=== PATIENT | female | born 1950 | race Caucasian/White ===

== ENCOUNTER → 2017-04-18 | Outpatient (CLI) | payer BC, OTHER ==
[~2017-04-18] MED LIST: ALBU1AER9 INH; B-COTAB18 PO; BLAC1TAB PO; CALC-51 PO; CALC625T35 PO; CINN1CAP2 PO; COEN10CA5 PO; HYDR-4852 PO; LRS10 PO; MISCCAP8 PO; MONT1TAB3 PO; MULT-506 PO; NAPR500T3 PO; SERT25TA PO; SIMV10TA2 PO; SYMIN INH; TOPI50TA24 PO; TRIATAB3 PO; TURM1CAP2 PO; VITA100C2 PO; [UNRECOGNIZED DRUG - CODE] PO
--- NOTE | 2017-04-18 15:20 | MAMMOGRAPHY REPORT ---
BILATERAL DIGITAL SCREENING MAMMOGRAM WITH CAD: 04/18/2017 CLINICAL HISTORY: Routine screening. Patient has no complaints. TECHNIQUE: Bilateral CC and MLO views were obtained. Current study was also evaluated with a Compute r Aided Detection (CAD) system. COMPARISON: Comparison is made to exams dated: 04/14/2016 mammogram, 04/03/2015 mammogram, 01/31/2014 m ammogram, 01/11/2013 mammogram, 01/10/2012 mammogram, and 01/04/2011 mammogram - [facility] nter. BREAST COMPOSITION: The tissue of both breasts is almost entirely fatty. FINDINGS: There are a few scattered stable benign-appearing round and punctate microcalcifications. No suspicious mass, architectural distortion or cluster of suspicious microcalcifications is seen. IMPRESSION: ACR BI-RADS CATEGORY 1: NEGATIVE There is no mammographic evidence of malignancy. A 1 year screening mammogram is recommended. The pa tient will receive written notification of the results. Approximately 10% of breast cancers are not detected with mammography. A negative mammographic report should not delay biopsy if a clinically suggestive mass is present. Lupe Rico M.D. ay/:04/18/2017 12:41:14 Red Lead Burner: Krissy ERICKSON(R)(M), [facility] letter sent: Normal 1/2 BI-RADS Code: ACR BI-RADS Category 1: Negative
== END | disposition home or self-care (01) ==
LOC: C.MAMM 12:20
PROVIDERS: ATTEND Family Medicine
DX: Z12.31 Encounter for screening mammogram for malignant neoplasm of breast (principal)

== ENCOUNTER 2018-02-01 17:34 | Emergency (ER) | payer OTHER, BC ==
[~2018-02-01] VITALS: Ht 167.6 cm; Wt 82.0 kg
[~2018-02-01 17:34] MED LIST changes: +NAPR-1231 PO; -NAPR500T3 PO
[2018-02-01 17:40] VITALS: TEMP 37.4; Ht 167.6 cm; Wt 82.0 kg
[2018-02-01] MEDS ORDERED: SODIUM CHLORIDE 0.9% 1000ML 1,000 ML IV STA (17:50)
[2018-02-01] MEDS ORDERED: ONDANSETRON INJ 2 MG/ML 2 ML VIAL IV STA (17:50)
[2018-02-01] MEDS ORDERED: OPTIRAY 320 IV PRN (18:00)
--- NOTE | 2018-02-01 18:06 | EMERGENCY ROOM VISIT NOTE ---
History Report prepared by Harrison: Ana Colmenares Under the Supervision of: Dr. Raj Rowan D.O. First contact with patient: 17:44 Chief Complaint: FALL Stated Complaint: FALL, BACK PAIN, DIFFICULTY BREATHING History of Present Illness The patient is a 67 year old female who presents to the Emergency Room with complaints of severe, constant mid-back pain beginning 1 hour 20 minutes ago. She notes she fell and hurt the middle of her back. The patient reports her pain is worst in the middle of her back, slightly to the right. She denies trauma to the head, LOC, abdominal pain or leg pain. The patient denies blood thinner use. She notes she had a double fusion of her back, by Dr. Xiao in [place] in 2002. Source of History: patient Onset: 1 hour 20 minutes ago Position: back (middle) Symptom Intensity: severe Associated Symptoms: No abdominal pain Note: Denies: trauma to head, leg pain Review of Systems See HPI for pertinent positives & negatives. A total of 10 systems reviewed and were otherwise negative. Past Medical & Surgical Back pain Family History No pertinent family history stated Social History Smoking Status: Never Smoker Marital Status: Housing Status: lives with family Current/Historical Medications Scheduled Budesonide/Formoterol Fumarate (Symbicort 160/4.5 Inhaler ), 2 PUFFS INH BID Magnesium Oxide (Mag-Ox), 400 MG PO DAILY Montelukast Sod (Montelukast Sodium), 10 MG PO HS Multivitamin (Multivitamin), 1 TAB PO QAM Naproxen (Naproxen), 1 TAB PO BID Sertraline HCl (Sertraline HCl), 100 MG PO DAILY Simvastatin (Zocor), 10 MG PO HS Topiramate (Topamax), 50 MG PO QAM Topiramate (Topamax), 100 MG PO HS Triamterene/Hctz (Triamterene/Hctz 37.5-25MG), 1 TAB PO QAM [Menthol Pads], 1 PATCH TOP PRN UD Scheduled PRN Baclofen (Baclofen), 1 TAB PO TID PRN for Pain Hydrocodone/Acetaminophen 7.5MG/325MG ([place] 7.5MG/325MG), 1 TAB PO TID PRN for Pain [Proair 108], 2 PUFF INH QID PRN for SOB/Wheezing Allergies Coded Allergies: Etodolac (Verified Allergy, Severe, HIVES, 02/01/18) Physical Exam Vital Signs Date Time Temp Pulse Resp B/P (MAP) Pulse Ox O2 Delivery O2 Flow Rate FiO2 02/01/18 20:37 70 18 151/85 93 02/01/18 18:49 74 20 126/73 97 Room Air 02/01/18 17:40 37.4 78 24 126/83 99 Room Air Physical Exam GENERAL: Patient is awake, alert, walking but appears to be in significant pain. EYES: The conjunctivae are clear. The pupils are round and reactive. EARS, NOSE, MOUTH AND THROAT: The nose is without any evidence of any deformity. Mucous membranes are moist. Tongue is midline NECK: The neck is nontender and supple. RESPIRATORY: Splinting respirations noted, no rales, rhonchi, or wheezing appreciated. CARDIOVASCULAR: Regular rate and rhythm noted. There no murmurs rubs or gallops normal S1 normal S2 GASTROINTESTINAL: The abdomen is soft. Bowel sounds are present in all quadrants. Abdomen is nontender. BACK: an area of ecchymosis noted over R lower posterior ribcage, significant tenderness in lower thoracic and upper lumbar spine MUSCULOSKELETAL/EXTREMITIES: There is no evidence of gross deformity. Full range of motion is noted in the hips and shoulders. SKIN: There is no obvious evidence of any rash. There are no petechiae, pallor or cyanosis noted. NEUROLOGIC: Patient is awake alert and oriented x3. Medical Decision & Procedures ER Provider Diagnostic Interpretation: Radiology results as stated below per my review and radiologist interpretation: CT SCAN OF THE CHEST, ABDOMEN, AND PELVIS WITH IV CONTRAST CLINICAL HISTORY: Trauma. Fall. COMPARISON STUDY: Chest x-ray dated 10/20/2007. TECHNIQUE: Following the IV administration of 116 of Optiray 320, CT scan of the chest, abdomen, and pelvis was performed from the thoracic inlet to the proximal femora. Images are reviewed in the axial, sagittal, and coronal planes. IV contrast was administered without complication. A dose lowering technique was utilized adhering to the principles of ALARA. CT DOSE: 1676.43 mGy.cm FINDINGS: CHEST: Thyroid: Imaged portions of the thyroid gland are normal in size and attenuation. Thoracic aorta: The thoracic aorta is normal in caliber and demonstrates standard 3-vessel arch anatomy. No dissection is seen. Pulmonary vasculature: The pulmonary trunk is normal in caliber. There are no filling defects identified in the central pulmonary vessels to indicate pulmonary embolus. Note that this examination was not protocoled for evaluation of the pulmonary arteries. Heart: The heart is normal in size and configuration, and without pericardial effusion. Lungs and pleural spaces: There is trace right pleural effusion. No airspace consolidation or pneumothorax is seen. The trachea and central airways are clear. Mediastinum: There is no mediastinal hematoma or lymphadenopathy. Evelyn: Clear. Axillae: There is no axillary lymphadenopathy. Bony thorax: The skeletal structures are osteopenic. There is a nondistracted right transverse process fracture of T10. Additionally, there is a comminuted fracture of the right 11th rib near the costovertebral junction. The bony thorax is otherwise intact. There is mild thoracic levoscoliosis. No lytic or blastic lesions are identified. ABDOMEN AND PELVIS: Liver: The contrast-enhanced liver is top normal in size. The liver is normal in contour and attenuation. There is no intrahepatic or ductal dilatation. The hepatic veins and portal veins are patent. Gallbladder: Unremarkable. Spleen: Normal in size and attenuation. There is a 13 mm peripherally calcified splenic artery aneurysm. Pancreas: Unremarkable. Adrenal glands: Unremarkable. Kidneys: The contrast enhanced kidneys are normal in size and without hydronephrosis. The kidneys enhance symmetrically. A 14 mm cyst is noted in the right lower pole. Abdominal vasculature: The abdominal aorta is normal in course and caliber. Stomach and bowel: A tiny hiatal hernia is identified. The duodenum is normal in configuration. No bowel obstruction is seen. The appendix is well-visualized and normal. Peritoneum: There is no intraperitoneal free air or abdominal ascites. There is a small fat-containing umbilical hernia. Lymphadenopathy: None. Pelvic viscera: The bladder, uterus, and adnexa are normal as visualized. Skeletal structures: The skeletal structures are osteopenic. There is moderate lumbosacral spondylosis and scoliosis. Postlaminectomy change is seen at L5-S1. No lytic or blastic lesions are seen. IMPRESSION: 1. There is a nondistracted right transverse process fracture of T10. 2. There is a comminuted fracture of the right posterior 11th rib. 3. No additional fracture is seen. 4. There is trace pleural fluid at the right lung base. The lungs are otherwise clear and there is no pneumothorax. 5. There is no evidence of solid organ injury in the abdomen or pelvis. 6. There is a 13 mm peripherally calcified splenic artery aneurysm. 7. Additional findings as above. Electronically signed by: Armando Medellin M.D. 02/01/2018 6:51 PM Dictated Date/Time: 02/01/2018 6:39 PM Laboratory Results 02/01/18 16:07 Red Blood Count 4.41, Mean Corpuscular Volume 93.9, Mean Corpuscular Hemoglobin 32.4, Mean Corpuscular Hemoglobin Concent 34.5, Mean Platelet Volume 9.5, Neutrophils (%) (Auto) 56.3, Lymphocytes (%) (Auto) 36.0, Monocytes (%) (Auto) 7.5, Eosinophils (%) (Auto) 0.0, Basophils (%) (Auto) 0.0, Neutrophils # (Auto) 2.92, Lymphocytes # (Auto) 1.87, Monocytes # (Auto) 0.39, Eosinophils # (Auto) 0.00, Basophils # (Auto) 0.00 02/01/18 16:07 Test 02/01/18 16:07 02/01/18 18:13 02/01/18 19:52 White Blood Count 5.19 K/uL (4.8-10.8) Red Blood Count 4.41 M/uL (4.2-5.4) Hemoglobin 14.3 g/dL (12.0-16.0) Hematocrit 41.4 % (37-47) Mean Corpuscular Volume 93.9 fL (80-100) Mean Corpuscular Hemoglobin 32.4 pg (25-34) Mean Corpuscular Hemoglobin Concent 34.5 g/dl (32-36) Platelet Count 183 K/uL (130-400) Mean Platelet Volume 9.5 fL (7.4-10.4) Neutrophils (%) (Auto) 56.3 % Lymphocytes (%) (Auto) 36.0 % Monocytes (%) (Auto) 7.5 % Eosinophils (%) (Auto) 0.0 % Basophils (%) (Auto) 0.0 % Neutrophils # (Auto) 2.92 K/uL (1.4-6.5) Lymphocytes # (Auto) 1.87 K/uL (1.2-3.4) Monocytes # (Auto) 0.39 K/uL (0.11-0.59) Eosinophils # (Auto) 0.00 K/uL (0-0.5) Basophils # (Auto) 0.00 K/uL (0-0.2) RDW Standard Deviation 44.5 fL (36.4-46.3) RDW Coefficient of Variation 13.0 % (11.5-14.5) Immature Granulocyte % (Auto) 0.2 % Immature Granulocyte # (Auto) 0.01 K/uL (0.00-0.02) Est Creatinine Clear Calc Drug Dose 57.4 ml/min Estimated GFR () 64.8 Estimated GFR (Non- 55.9 BUN/Creatinine Ratio 25.2 (10-20) Calcium Level 9.3 mg/dl (8.5-10.1) Total Bilirubin 0.6 mg/dl (0.2-1) Direct Bilirubin 0.1 mg/dl (0-0.2) Aspartate Amino Transf (AST/SGOT) 21 U/L (15-37) Alanine Aminotransferase (ALT/SGPT) 37 U/L (12-78) Alkaline Phosphatase 48 U/L (45-117) Total Protein 7.9 gm/dl (6.4-8.2) Albumin 4.5 gm/dl (3.4-5.0) Bedside Hemoglobin 14.3 g/dl (12.0-16.0) Bedside Hematocrit 42 % (37-47) Bedside Sodium 141 mEq/L (135-144) Bedside Potassium 3.8 mEq/L (3.3-5.0) Bedside Chloride 102 mEq/L (101-112) Bedside Total CO2 23 mEq/l (24-31) Anion Gap 20.0 mmol/L (16-25) Bedside Blood Urea Nitrogen 24 mg/dl (7-18) Bedside Creatinine 0.9 mg/dl (0.6-1.3) Bedside Glucose (other) 113 mg/dl (70-99) Bedside Ionized Calcium ([place]) 1.18 mmol/l (1.12-1.32) Urine Color YELLOW Urine Appearance CLEAR (CLEAR) Urine pH 7.0 (4.5-7.5) Urine Specific [place] 1.031 (1.000-1.030) Urine Protein NEG (NEG) Urine Glucose (UA) NEG (NEG) Urine Ketones NEG (NEG) Urine Occult Blood NEG (NEG) Urine Nitrite NEG (NEG) Urine Bilirubin NEG (NEG) Urine Urobilinogen NEG (NEG) Urine Leukocyte Esterase TRACE (NEG) Urine WBC (Auto) 1-5 /hpf (0-5) Urine RBC (Auto) 0-4 /hpf (0-4) Urine Hyaline Casts (Auto) 0 /lpf (0-5) Urine Epithelial Cells (Auto) 0-5 /lpf (0-5) Urine Bacteria (Auto) NEG (NEG) Laboratory results per my review. Medications Administered Medications (Trade) Dose Ordered Sig/Lee Route Start Time Stop Time Status Last Admin Dose Admin Sodium Chloride 1,000 ml @ 250 mls/hr Q4H STAT IV 02/01/18 17:50 02/01/18 20:50 DC 02/01/18 18:21 250 MLS/HR Morphine Sulfate (MoRPHine SULFATE INJ) 4 mg Q15M PRN IV 02/01/18 18:00 02/01/18 20:50 DC 02/01/18 20:19 4 MG Ondansetron HCl (Zofran Inj) 4 mg NOW STAT IV 02/01/18 17:50 02/01/18 17:53 DC 02/01/18 18:21 4 MG ED Course 1747: The patient was evaluated in room A11A. A complete history and physical examination were performed. 1750: Ordered Zofran Inj 4 mg IV, NSS 1,000 ml @ 250 mls/hr IV 1800: Ordered Ioversol 111 ml IV, Morphine Sulfate 4 mg IV. 1934: Upon reevaluation, the patient is feeling better. I discussed the results and treatment plan with her. She verbalized agreement of the treatment plan. The patient was discharged home. Medical Decision Etiologies such as fracture, dislocation, intra-abdominal, pneumothorax, intrathoracic , intracranial, neurologic, as well as other traumatic pathologies were entertained. Nursing notes reviewed. Additional history is obtained from the patient's significant other. The patient is a 67-year-old female who suffered a significant fall onto her back. She had significant pain and ecchymosis over the right mid back and the right posterior rib cage. CAT scan did not reveal any internal injury however she was found to have a transverse process fracture and a posterior rib fracture. I discussed the patient's laboratory and radiographic studies with her. She was treated with IV pain medication in the emergency department. On subsequent reevaluation she was feeling much better. She was comfortable going home because she already has a prescription for pain medication. She was encouraged to continue all medications as prescribed and rest. She was also given an incentive spirometer. She was also encouraged to return to the emergency department immediately if symptoms change worsen or the need arises. Otherwise she was encouraged to follow-up with her primary care physician for further evaluation. Medication Reconcilliation Current Medication List: was personally reviewed by me Blood Pressure Screening Patient's blood pressure: Normal blood pressure Blood pressure disposition: Did not require urgent referral Impression Primary Impression: Fall Additional Impressions: Back contusion Right rib fracture Fracture of transverse process of thoracic vertebra Scribe Attestation The scribe's documentation has been prepared under my direction and personally reviewed by me in its entirety. I confirm that the note above accurately reflects all work, treatment, procedures, and medical decision making performed by me. Departure Information Dispostion Home / Self-Care Referrals Evelyn Romero D.O. (PCP) Forms HOME CARE DOCUMENTATION FORM, IMPORTANT VISIT INFORMATION Patient Instructions My [facility] Additional Instructions Rest and avoid any strenuous activity. Continue all medications as prescribed. Follow-up with your family doctor for recheck as well as a referral to a vascular surgeon regarding the calcified blood vessel by your spleen that was noted on CAT scan incidentally today. Return to the emergency department immediately if symptoms change worsen or the need arises. Continue using the incentive spirometer as illustrated 10-12 times a day. Problem Qualifiers Primary Impression: Fall Encounter type: initial encounter Qualified Codes: W19.XXXA - Unspecified fall, initial encounter Additional Impressions: Back contusion Encounter type: initial encounter Laterality: right Qualified Codes: S20.221A - Contusion of right back wall of thorax, initial encounter Right rib fracture Encounter type: initial encounter Rib fracture type: single rib Fracture type: closed Qualified Codes: S22.31XA - Fracture of one rib, right side, initial encounter for closed fracture Fracture of transverse process of thoracic vertebra Encounter type: initial encounter Fracture type: closed Qualified Codes: S22.009A - Unspecified fracture of unspecified thoracic vertebra, initial encounter for closed fracture
[2018-02-01] MEDS: MoRPHine SULFATE 4 MG/ML 1 ML CARP\\VIAL IV PRN ×2 (18:21→20:19)
[2018-02-01 18:29] LABS: ISTAT CREATININE 0.9 mg/dl (0.6-1.3); ISTAT IONIZED CALCIUM 1.18 mmol/l (1.12-1.32); ISTAT POTASSIUM 3.8 mEq/L (3.3-5.0)
[2018-02-01 18:32] LABS: HEMATOCRIT 41.4 % (37-47); HEMOGLOBIN 14.3 g/dL (12.0-16.0); IG# 0.01 K/uL (0.00-0.02); LYMPH ABS # 1.87 K/uL (1.2-3.4); MEAN CELL VOLUME 93.9 fL (80-100); MEAN CORPUSCULAR HEMOGLOBIN 32.4 pg (25-34); MEAN CORPUSCULAR HGB CONC 34.5 g/dl (32-36); MEAN PLATELET VOLUME 9.5 fL (7.4-10.4); MONO % 7.5 %; MONO ABS # 0.39 K/uL (0.11-0.59); NEUT % 56.3 %; NEUT ABS # 2.92 K/uL (1.4-6.5); PLATELET COUNT 183 K/uL (130-400); RED CELL DISTRIBUTION WIDTH SD 44.5 fL (36.4-46.3); WHITE BLOOD COUNT 5.19 K/uL (4.8-10.8)
[2018-02-01 18:53] LABS: ALBUMIN 4.5 gm/dl (3.4-5.0); CALCIUM 9.3 mg/dl (8.5-10.1); CREATININE 1.04 mg/dl (0.60-1.20); POTASSIUM 3.7 mmol/L (3.5-5.1); TOTAL PROTEIN 7.9 gm/dl (6.4-8.2)
--- NOTE | 2018-02-01 18:53 | DIAGNOSTIC IMAGING REPORT ---
CT SCAN OF THE CHEST, ABDOMEN, AND PELVIS WITH IV CONTRAST CLINICAL HISTORY: Trauma. Fall. COMPARISON STUDY: Chest x-ray dated 10/20/2007. TECHNIQUE: Following the IV administration of 116 of Optiray 320, CT scan of the chest, abdomen, and pelvis was performed from the thoracic inlet to the proximal femora. Images are reviewed in the axial, sagittal, and coronal planes. IV contrast was administered without complication. A dose lowering technique was utilized adhering to the principles of ALARA. CT DOSE: 1676.43 mGy.cm FINDINGS: CHEST: Thyroid: Imaged portions of the thyroid gland are normal in size and attenuation. Thoracic aorta: The thoracic aorta is normal in caliber and demonstrates standard 3-vessel arch anatomy. No dissection is seen. Pulmonary vasculature: The pulmonary trunk is normal in caliber. There are no filling defects identified in the central pulmonary vessels to indicate pulmonary embolus. Note that this examination was not protocoled for evaluation of the pulmonary arteries. Heart: The heart is normal in size and configuration, and without pericardial effusion. Lungs and pleural spaces: There is trace right pleural effusion. No airspace consolidation or pneumothorax is seen. The trachea and central airways are clear. Mediastinum: There is no mediastinal hematoma or lymphadenopathy. Evelyn: Clear. Axillae: There is no axillary lymphadenopathy. Bony thorax: The skeletal structures are osteopenic. There is a nondistracted right transverse process fracture of T10. Additionally, there is a comminuted fracture of the right 11th rib near the costovertebral junction. The bony thorax is otherwise intact. There is mild thoracic levoscoliosis. No lytic or blastic lesions are identified. ABDOMEN AND PELVIS: Liver: The contrast-enhanced liver is top normal in size. The liver is normal in contour and attenuation. There is no intrahepatic or ductal dilatation. The hepatic veins and portal veins are patent. Gallbladder: Unremarkable. Spleen: Normal in size and attenuation. There is a 13 mm peripherally calcified splenic artery aneurysm. Pancreas: Unremarkable. Adrenal glands: Unremarkable. Kidneys: The contrast enhanced kidneys are normal in size and without hydronephrosis. The kidneys enhance symmetrically. A 14 mm cyst is noted in the right lower pole. Abdominal vasculature: The abdominal aorta is normal in course and caliber. Stomach and bowel: A tiny hiatal hernia is identified. The duodenum is normal in configuration. No bowel obstruction is seen. The appendix is well-visualized and normal. Peritoneum: There is no intraperitoneal free air or abdominal ascites. There is a small fat-containing umbilical hernia. Lymphadenopathy: None. Pelvic viscera: The bladder, uterus, and adnexa are normal as visualized. Skeletal structures: The skeletal structures are osteopenic. There is moderate lumbosacral spondylosis and scoliosis. Postlaminectomy change is seen at L5-S1. No lytic or blastic lesions are seen. IMPRESSION: 1. There is a nondistracted right transverse process fracture of T10. 2. There is a comminuted fracture of the right posterior 11th rib. 3. No additional fracture is seen. 4. There is trace pleural fluid at the right lung base. The lungs are otherwise clear and there is no pneumothorax. 5. There is no evidence of solid organ injury in the abdomen or pelvis. 6. There is a 13 mm peripherally calcified splenic artery aneurysm. 7. Additional findings as above. Electronically signed by: Armando Medellin M.D. 02/01/2018 6:51 PM Dictated Date/Time: 02/01/2018 6:39 PM
[2018-02-01] MEDS ORDERED: PROAIR 108 INH (19:09)
[2018-02-01] MEDS ORDERED: ZLF/50 PO (19:09)
[2018-02-01] MEDS ORDERED: HYDR-3983 PO (19:09)
[2018-02-01] MEDS ORDERED: [UNRECOGNIZED DRUG - OTHER] TOP (19:09)
[2018-02-01] MEDS ORDERED: SYMIN160 INH (19:09)
[2018-02-01] MEDS ORDERED: TPM/50 PO (19:09)
[2018-02-01] MEDS ORDERED: SNG10 PO (19:09)
[2018-02-01] MEDS ORDERED: MAGN400T6 PO (19:09)
[2018-02-01 20:37] VITALS: BP 151/85; PULSE 70; O2SAT 93
== END 2018-02-01 20:37 | disposition home or self-care (01) ==
LOC: C.EDB 17:36 → C.EDA 20:37
DX: S30.0XXA Contusion of lower back and pelvis, initial encounter (principal); S22.31XA Fracture of one rib, right side, initial encounter for closed fracture; S22.009A Unspecified fracture of unspecified thoracic vertebra, initial encounter for closed fracture; W19.XXXA Unspecified fall, initial encounter; G89.29 Other chronic pain; Z88.6 Allergy status to analgesic agent; Z98.1 Arthrodesis status

== ENCOUNTER 2019-10-15 16:12 | Observation (INO) ==
[2019-10-15] MEDS ORDERED: SODIUM CHLORIDE 0.9% 1000ML 1,000 ML IV SCH (16:30)
--- NOTE | 2019-10-15 16:38 | Emergency Department Note ---
History of Present Illness General Chief complaint: Flank Pain Stated complaint: flank pain Time Seen by Provider: 10/15/19 16:16 History of Present Illness Maximum Pain Intensity: 4 The patient is a 68-year-old female who presented to the emergency department for an evaluation of right-sided flank pain. The patient has been experiencing right-sided abdominal pain and right flank pain over the last 3 to 4 days. She states the pain is moderate and worsened with any movement. She also notices localization in the right lower quadrant specifically with bending over. She is noticed no nausea or vomiting. She notices no fevers. She has not noticed any dysuria or frequency. She denies having any hematuria. She was seen by her primary care physician and sent for laboratory and radiographic studies. She was found to have signs of appendicitis on CT the abdomen and pelvis. For this reason she was sent to the emergency department for surgical evaluation. The patient states that she has had not had anything by mouth over the last few hours. She went home to pack a bag and then came here after she was called by her primary care physician. Home Medications Home Medications Medication Instructions Recorded Confirmed Type albuterol sulfate [ProAir HFA] 2 puff INHALATION QID PRN 11/08/18 10/15/19 His tory baclofen 10 mg PO TID PRN 11/08/18 10/15/19 History budesonide-formoterol [Symbicort] 2 puff INHALATION BID 11/08/18 10/15/19 History duloxetine 30 mg PO DAILY 11/08/18 10/15/19 History hydrocodone-acetaminophen [[place]] 1 tab PO TID PRN 11/08/18 10/15/19 History magnesium oxide 400 mg PO DAILY 11/08/18 10/15/19 History montelukast [Singulair] 10 mg PO PM 11/08/18 10/15/19 History multivitamin 1 tab PO QAM 11/08/18 10/15/19 History naproxen 500 mg PO BID PRN 11/08/18 10/15/19 History potassium chloride 10 meq PO DAILY 11/08/18 10/15/19 History simvastatin [Zocor] 10 mg PO HS 11/08/18 10/15/19 History topiramate [Topamax] 100 mg PO HS 11/08/18 10/15/19 History lisinopril 10 mg PO DAILY 10/15/19 10/15/19 History Allergies Allergy/AdvReac Type Severity Reaction Status Date / Time etodolac Allergy Intermediate HIVES Verified 10/15/19 18:35 Past Med/Surg History Medical History Anxiety Asthma USES PRN INH 1 X MO NEEDED Chiari malformation Chronic back pain Degenerative disc disease History of ectopic Hyperlipidemia Hypertension Migraine Osteoarthritis Scoliosis Surgical History History of carpal tunnel release of both wrists History of cataract surgery History of colonoscopy History of fusion of lumbar spine History of laparoscopy History of sinus surgery Family History Sister Family history of diabetes mellitus Social History Preferred Language: Belarusian Communication Ability: Effective Engraver Automatic Required: No Beliefs That Will Affect Care: None Current Living Situation: Spouse and Family Other Information That Helps Us Care for You: No Feels Safe at Home: Yes Safety Concerns: Feels Safe At This Time Smoking Status: Never smoker Do You Dip or Chew Tobacco: No ; Second Hand Exposure: No ; Tobacco Cessation Education Requested by Patient: No Hx Alcohol Use: No Hx Substance Use: No Review of Systems See HPI for pertinent positives & negatives. and A total of 10 systems reviewed and were otherwise negative Physical Exam Vital Signs Vital Signs - 24 hr 10/15/19 16:14 10/15/19 16:26 10/15/19 16:44 Temperature 36.9 C Temperature Source Oral Pulse Rate 73 75 Pulse Rate from SpO2 Sensor 75 Pulse Rhythm Regular Pulse Strength Normal Respiratory Rate 18 22 Respiratory Effort / Characteristics Non-Labored Respiratory Depth Normal Respiratory Pattern Regular Blood Pressure 162/84 H 159/95 H Blood Pressure Mean 110 120 Blood Pressure Position Sitting Pulse Oximetry 97 97 98 Oxygen Delivery Method Room Air Room Air Sepsis Recent Fever Within 48 Hours No Sepsis Action Taken by Nursing No Action Required 10/15/19 16:50 10/15/19 17:00 10/15/19 17:10 Temperature Temperature Source Pulse Rate 74 67 67 Pulse Rate from SpO2 Sensor 74 67 67 Pulse Rhythm Pulse Strength Respiratory Rate 14 13 14 Respiratory Effort / Characteristics Respiratory Depth Respiratory Pattern Blood Pressure Blood Pressure Mean Blood Pressure Position Pulse Oximetry 98 99 99 Oxygen Delivery Method Sepsis Recent Fever Within 48 Hours Sepsis Action Taken by Nursing 10/15/19 17:20 10/15/19 17:30 10/15/19 17:40 Temperature Temperature Source Pulse Rate 70 66 70 Pulse Rate from SpO2 Sensor 74 67 65 Pulse Rhythm Pulse Strength Respiratory Rate 15 15 17 Respiratory Effort / Characteristics Respiratory Depth Respiratory Pattern Blood Pressure Blood Pressure Mean Blood Pressure Position Pulse Oximetry 98 98 Oxygen Delivery Method Sepsis Recent Fever Within 48 Hours Sepsis Action Taken by Nursing 10/15/19 17:50 10/15/19 18:00 10/15/19 18:10 Temperature Temperature Source Pulse Rate 67 75 86 Pulse Rate from SpO2 Sensor 67 Pulse Rhythm Pulse Strength Respiratory Rate 16 15 18 Respiratory Effort / Characteristics Respiratory Depth Respiratory Pattern Blood Pressure Blood Pressure Mean Blood Pressure Position Pulse Oximetry 100 Oxygen Delivery Method Sepsis Recent Fever Within 48 Hours Sepsis Action Taken by Nursing GENERAL: Patient is awake alert in no acute distress patient is resting comfor tably and showing no signs of anxiety EYES: The conjunctivae are clear. The pupils are round and reactive. EARS, NOSE, MOUTH AND THROAT: The nose is without any evidence of any deformity. Mucous membranes are moist. Tongue is midline. NECK: The neck is nontender and supple. RESPIRATORY: Normal respiratory effort is noted there is no evidence of wheezing rhonchi or rales CARDIOVASCULAR: Regular rate and rhythm noted there no murmurs rubs or gallops normal S1 normal S2. GASTROINTESTINAL: The abdomen is mildly distended. There is significant tenderness in the right lower quadrant. There is guarding in both lower quadrants. BACK: Low right CVA tenderness was noted to percussion. There is no midline tenderness. MUSCULOSKELETAL/EXTREMITIES: There is no evidence of gross deformity full range of motion is noted in the hips and shoulders. SKIN: There is no obvious evidence of any rash. There are no petechiae, pallor or cyanosis noted. NEUROLOGIC: Patient is awake alert and oriented x3. Course Course 1635: I discussed this case with Nyasia Wellington. She will inform the on-call surgeon about the patient's condition and location. Administered Medications Lactated Ringer's (Lr) 1,000 mls @ 80 mls/hr IV .[id number] ERIC Stop: 11/14/19 21:25 Last Admin: 10/15/19 21:37 Dose: 80 mls/hr Documented by: [id number] Montelukast Sodium (Singulair) 10 mg PO PM [facility] Stop: 11/14/19 21:59 Last Admin: 10/15/19 21:52 Dose: 10 mg Documented by: [id number] Simvastatin (Zocor) 10 mg PO HS [facility] Stop: 11/14/19 21:59 Last Admin: 10/15/19 21:52 Dose: 10 mg Documented by: [id number] Topiramate (Topamax) 100 mg PO HS [facility] Stop: 11/14/19 21:59 Last Admin: 10/15/19 21:52 Dose: 100 mg Documented by: [id number] Discontinued Medications Bacitracin (Bacitracin) Confirm Administered Dose 45 appln .ROUTE .STK-MED ONE Stop: 10/15/19 18:07 Last Admin: 10/15/19 20:22 Dose: 45 appln Documented by: [id number] Bupivacaine HCl (Marcaine 0.5% Mpf) Confirm Administered Dose 30 ml .ROUTE .STK- MED ONE Stop: 10/15/19 18:07 Last Admin: 10/15/19 20:21 Dose: 11 ml Documented by: [id number] Sodium Chloride (Nss 1000ml) 1,000 mls @ 999 mls/hr IV .[id number] [facility] Stop: 10/15/19 17:30 Last Infusion: 10/15/19 18:03 Dose: 0 mls/hr Documented by: [id number] Admin: 10/15/19 16:42 Dose: 999 mls/hr Documented by: [id number] Cefoxitin Sodium (Mefoxin) 2,000 mg in 60 mls @ 100 mls/hr IV 1845 [facility] Stop: 10/16/19 18:44 Last Infusion: 10/15/19 21:38 Dose: 0 mls/hr Documented by: [id number] Admin: 10/15/19 19:28 Dose: 100 mls/hr Documented by: [id number] Lidocaine HCl (Xylocaine 1% (Local)) Confirm Administered Dose 20 ml .ROUTE .STK-MED ONE Stop: 10/15/19 18:07 Last Admin: 10/15/19 20:21 Dose: 11 ml Documented by: [id number] Medical Decision Making Differential Diagnosis Etiologies such as appendicitis, diverticulitis, obstruction, inflammatory bowel disease, renal colic, PUD, biliary pathology, pancreatitis, mesenteric ischemia, aortic pathology, infections, genitourinary, UTI, perforated viscus, a s well as others were entertained. Medical Records Attestation: I reviewed the patient's medical records. Home Medications Current Medication List: was personally reviewed by me Laboratory Data Attestation: I reviewed the patient's lab results. Result diagrams: 10/15/19 16:30 10/15/19 16:30 Lab Results 10/15/19 10/15/19 10/15/19 Range/Units 16:30 16:30 16:30 WBC 5.37 (4.8-10.8) K/uL RBC 4.01 L (4.2-5.4) M/uL Hgb 13.5 (12.0-16.0) g/dL Hct 39.6 (37-47) % MCV 98.8 (80-100) fL MCH 33.7 (25-34) pg MCHC 34.1 (32-36) g/dL RDW Std Deviation 44.4 (36.4-46.3) fL RDW Coeff of Rose 12.4 (11.5-14.5) % Plt Count 186 (130-400) K/uL MPV 9.2 (7.4-10.4) fL Immature Gran % (Auto) 0.0 % Neut % (Auto) 56.4 % Lymph % (Auto) 37.1 % [place] % (Auto) 6.5 % Eos % (Auto) 0.0 % Baso % (Auto) 0.0 % Immature Gran # (Auto) 0.00 (0.00-0.02) K/uL Neut # (Auto) 3.03 (1.4-6.5) K/uL Lymph # (Auto) 1.99 (1.2-3.4) K/uL [place] # (Auto) 0.35 (0.11-0.59) K/uL Eos # (Auto) 0.00 (0-0.5) K/uL Baso # (Auto) 0.00 (0-0.2) K/uL ESR 27 H (0-21) mm/hr Sodium 136 (136-145) mmol/L Potassium 3.4 L (3.5-5.1) mmol/L Chloride 110 H (98-107) mmol/L Carbon Dioxide 25 (21-32) mmol/L Anion Gap 1.0 L (3-11) BUN 19 H (7-18) mg/dl Creatinine 0.94 (0.6-1.2) mg/dl Est Cr Clr Drug Dosing 61.6 ml/min Est GFR ( Amer) 72.8 Est GFR (Non-Af Amer) 62.8 BUN/Creatinine Ratio 20.3 H (10-20) Glucose 90 (70-99) mg/dl Calcium 9.3 (8.5-10.1) mg/dl Total Bilirubin 0.3 (0.2-1) mg/dl AST 14 L (15-37) U/L ALT 30 (12-78) U/L Alkaline Phosphatase 49 (45-117) U/L C-Reactive Protein 1.54 H (0-0.29) mg/dl Total Protein 7.8 (6.4-8.2) gm/dl Albumin 3.9 (3.4-5.0) gm/dl Globulin 3.9 (2.5-4.0) gm/dl Albumin/Globulin Ratio 1.0 (0.9-2) Lipase 234 (73-393) U/L Urine Color Urine Appearance (Clear) Urine pH (4.5-7.5) Ur Specific [place] (1.000-1.030) Urine Protein (Negative) Urine Glucose (UA) (Negative) Urine Ketones (Negative) Urine Blood (Negative) Urine Nitrite (Negative) Urine Bilirubin (Negative) Urine Urobilinogen (Negative) Ur Leukocyte Esterase (Negative) 10/15/19 Range/Units 16:38 WBC (4.8-10.8) K/uL RBC (4.2-5.4) M/uL Hgb (12.0-16.0) g/dL Hct (37-47) % MCV (80-100) fL MCH (25-34) pg MCHC (32-36) g/dL RDW Std Deviation (36.4-46.3) fL RDW Coeff of Rose (11.5-14.5) % Plt Count (130-400) K/uL MPV (7.4-10.4) fL Immature Gran % (Auto) % Neut % (Auto) % Lymph % (Auto) % [place] % (Auto) % Eos % (Auto) % Baso % (Auto) % Immature Gran # (Auto) (0.00-0.02) K/uL Neut # (Auto) (1.4-6.5) K/uL Lymph # (Auto) (1.2-3.4) K/uL [place] # (Auto) (0.11-0.59) K/uL Eos # (Auto) (0-0.5) K/uL Baso # (Auto) (0-0.2) K/uL ESR (0-21) mm/hr Sodium (136-145) mmol/L Potassium (3.5-5.1) mmol/L Chloride (98-107) mmol/L Carbon Dioxide (21-32) mmol/L Anion Gap (3-11) BUN (7-18) mg/dl Creatinine (0.6-1.2) mg/dl Est Cr Clr Drug Dosing ml/min Est GFR ( Amer) Est GFR (Non-Af Amer) BUN/Creatinine Ratio (10-20) Glucose (70-99) mg/dl Calcium (8.5-10.1) mg/dl Total Bilirubin (0.2-1) mg/dl AST (15-37) U/L ALT (12-78) U/L Alkaline Phosphatase (45-117) U/L C-Reactive Protein (0-0.29) mg/dl Total Protein (6.4-8.2) gm/dl Albumin (3.4-5.0) gm/dl Globulin (2.5-4.0) gm/dl Albumin/Globulin Ratio (0.9-2) Lipase (73-393) U/L Urine Color Yellow Urine Appearance Clear (Clear) Urine pH 5.0 (4.5-7.5) Ur Specific [place] > 1.045 H (1.000-1.030) Urine Protein Negative (Negative) Urine Glucose (UA) Negative (Negative) Urine Ketones Negative (Negative) Urine Blood Negative (Negative) Urine Nitrite Negative (Negative) Urine Bilirubin Negative (Negative) Urine Urobilinogen Negative (Negative) Ur Leukocyte Esterase Negative (Negative) Blood Pressure Blood Pressure Findings: Elevated blood pressure Blood Pressure Disposition: elevated BP felt to be situational Additional Comments: Blood pressure management referred to surgical team. MDM Narrative The patient is a 68-year-old female who presented to the emergency department for right-sided abdominal pain. The patient started having right-sided abdominal pain and flank pain over the last few days. She was seen by her primary care physician and sent to the emergency department for further evaluation after a CAT scan revealed signs of appendicitis. I reviewed the patient's laboratory and radiographic studies with her. She was treated with IV fluids in the emergency department. I discussed her case with the on-call surgical group. They have agreed to evaluate the patient in the emergency department for further management and disposition. Patient was agreeable to surgical evaluation. She did not wish to have any pain medication at this time. Impression & Plan Acute appendicitis, Abdominal pain Discharge Plan Visit Data *Final* Discharge Date/Time: 10/15/19 18:40 Chief Complaint: Flank Pain Stated Complaint: flank pain ED Provider: Raj Rowan Discharge Problem: Acute appendicitis, Abdominal pain Patient Disposition: Admitted As Inpatient Condition: Good Discharge Instructions Interventions: ED Discharge Assessment Last Done: 10/15/19 18:40 Discharge Problem: Acute appendicitis Qualifiers: Acute appendicitis type: with localized peritonitis Appendicitis gangrene presence: without gangrene Appendicitis perforation presence: without perforation Appendicitis abscess presence: without abscess Qualified Code(s): K35.30 - Acute appendicitis with localized peritonitis, without perforation or gangrene Abdominal pain Qualifiers: Abdominal location: right lower quadrant Qualified Code(s): R10.31 - Right lower quadrant pain
[2019-10-15 16:49] LABS: Hematocrit (blood only) 39.6 % (37-47); Hemoglobin 13.5 g/dL (12.0-16.0); Lymphocytes # (auto) 1.99 K/uL (1.2-3.4); Lymphocytes % (auto) 37.1 %; Mean Corpuscular Hemoglobin 33.7 pg (25-34); Mean Corpuscular Hgb Conc 34.1 g/dL (32-36); Mean Corpuscular Volume 98.8 fL (80-100); Mean Platelet Volume 9.2 fL (7.4-10.4); Monocytes # (auto) 0.35 K/uL (0.11-0.59); Monocytes % (auto) 6.5 %; Neutrophils # (auto) 3.03 K/uL (1.4-6.5); Neutrophils % (auto) 56.4 %; Platelet Count 186 K/uL (130-400); RDW Coefficient of Variation 12.4 % (11.5-14.5); RDW Standard Deviation 44.4 fL (36.4-46.3); Red Blood Count 4.01 M/uL (4.2-5.4); White Blood Count 5.37 K/uL (4.8-10.8)
[2019-10-15 16:52] LABS: Appearance Urine Clear (Clear); Bilirubin Urine Negative (Negative); Blood Urine Negative (Negative); Color Urine Yellow; Glucose Urine UA Negative (Negative); Ketones Urine Negative (Negative); Leukocyte Esterase Urine Negative (Negative); Nitrite Urine Negative (Negative); Protein Urine Negative (Negative); Specific Gravity Urine > 1.045 (1.000-1.030); Urobilinogen Urine Negative (Negative)
[2019-10-15 17:07] LABS: Albumin Level 3.9 gm/dl (3.4-5.0); BUN Creatinine Ratio 20.3 (10-20); Calcium 9.3 mg/dl (8.5-10.1); Creatinine Clr Calc Pharmacy 61.6 ml/min; Est GFR (African American) 72.8; Est GFR (Non-African American) 62.8; Potassium 3.4 mmol/L (3.5-5.1)
[2019-10-15 17:10] LABS: Bilirubin,Total 0.3 mg/dl (0.2-1); C Reactive Protein 1.54 mg/dl (0-0.29); Globulin 3.9 gm/dl (2.5-4.0); Total Protein 7.8 gm/dl (6.4-8.2)
[2019-10-15] MEDS ORDERED: fentaNYL citrate 100 MCG/2 ML VIAL ONE (18:01)
[2019-10-15] MEDS ORDERED: BUPIVACAINE 0.5 % 5 MG/1 ML MPF 30ML VIAL ONE (18:06)
[2019-10-15] MEDS ORDERED: BACITRACIN OINT 15 GM TUBE ONE (18:06)
[2019-10-15] MEDS ORDERED: LIDOCAINE HCL 1% 20 ML VIAL ONE (18:06)
--- NOTE | 2019-10-15 18:10 | Anesthesiology Consultation ---
Date of Service October 15, 2019 Assessment & Plan (1) Encounter for pre-operative examination: Chart Review Chart Review: Acceptable Risk for Surgery and Patient NOT seen in Pre Admission Testing Consults Requested none ASA [id number] Proposed Anesthesia Anesthesia Type: General Risk / Benefits Reviewed With: PT / POA / Parent / Guardian, Accepts Plan and Informed Consent Obtained History Surgery Operation Date: 10/15/19 17:55 Proposed Procedures p Laparoscopic Appendectomy - Juancarlos Teran MD Height/Weight Height: 5 ft 3 in Weight: 89.4 kg Allergies Allergy/AdvReac Type Severity Reaction Status Date / Time etodolac Allergy Intermediate HIVES Verified 10/15/19 18:35 Medications Home Medications Medication Instructions Recorded Confirmed Last Taken albuterol sulfate [ProAir HFA] 2 puff INHALATION QID PRN 11/08/18 10/15/19 Unknown baclofen 10 mg PO TID PRN 11/08/18 10/15/19 11/21/18 budesonide-formoterol [Symbicort] 2 puff INHALATION BID 11/08/18 10/15/19 10/15/19 08:00 duloxetine 30 mg PO DAILY 11/08/18 10/15/19 10/15/19 hydrocodone-acetaminophen [[place]] 1 tab PO TID PRN 11/08/18 10/15/19 11/21/18 magnesium oxide 400 mg PO DAILY 11/08/18 10/15/19 10/15/19 montelukast [Singulair] 10 mg PO PM 11/08/18 10/15/19 10/14/19 multivitamin 1 tab PO QAM 11/08/18 10/15/19 10/15/19 naproxen 500 mg PO BID PRN 11/08/18 10/15/19 11/15/18 potassium chloride 10 meq PO DAILY 11/08/18 10/15/19 10/15/19 simvastatin [Zocor] 10 mg PO HS 11/08/18 10/15/19 10/14/19 topiramate [Topamax] 100 mg PO HS 11/08/18 10/15/19 10/14/19 lisinopril 10 mg PO DAILY 10/15/19 10/15/19 10/15/19 NPO Date Last Intake of Fluids: 10/15/19 Time Last Intake of Fluids: 14:00 Last Intake of Fluids Comment: CT Contrast Date Last Intake of Solids: 10/15/19 Time Last Intake of Solids: 14:00 Past Medical History Medical History Anxiety Asthma USES PRN INH 1 X MO NEEDED Chiari malformation Chronic back pain Degenerative disc disease History of ectopic Hyperlipidemia Hypertension Migraine Osteoarthritis Scoliosis Exercise / Class Metabolic Activity II 4-5 Yardwork/Stairs/Walk up hill Past Family History Family History Sister Family history of diabetes mellitus Past Surgical History Surgical History History of carpal tunnel release of both wrists History of cataract surgery History of colonoscopy History of fusion of lumbar spine History of laparoscopy History of sinus surgery Past Anesthesia History No Hx of Anesthesia Complications and No Family Hx of Anesthesia Complications History of PONV No Hx of PONV and No Hx of Motion Sickness Social History Smoking Status: Never smoker Hx Alcohol Use: No Alcohol type: wine alcohol intake frequency: holidays/special occasions only Hx Substance Use: No substance use type: does not use Physical Exam Vital Signs Last Vital Signs Temp 36.9 C 10/15/19 16:14 Pulse 86 10/15/19 18:10 Resp 18 10/15/19 18:10 BP 159/95 H 10/15/19 16:44 Pulse Ox 100 10/15/19 17:50 ENMT Mouth: no dentition abnormality Thyromental Distance: > or= 3.5 Finger Breadths Mallampati Class: II Neck normal visual inspection Respiratory normal respiratory effort Auscultation: lungs clear to auscultation bilaterally Cardiovascular Rate/Rhythm: regular rate and regular rhythm Psychiatric Orientation: alert Testing Laboratory Results 10/15/19 16:30 10/15/19 16:30 Urine Color Yellow 10/15/19 16:38 Urine Appearance Clear (Clear) 10/15/19 16:38 Urine pH 5.0 (4.5-7.5) 10/15/19 16:38 Ur Specific [place] > 1.045 (1.000-1.030) H 10/15/19 16:38 Urine Protein Negative (Negative) 10/15/19 16:38 Urine Glucose (UA) Negative (Negative) 10/15/19 16:38 Urine Ketones Negative (Negative) 10/15/19 16:38 Urine Nitrite Negative (Negative) 10/15/19 16:38 Ur Leukocyte Esterase Negative (Negative) 10/15/19 16:38
--- NOTE | 2019-10-15 18:27 | Surgery Consultation ---
Date of Consultation October 15, 2019 Assessment & Plan (1) Acute appendicitis: pt is a 68 year - old female who presents to ER with 3-4 days history RLQ pain, CT scan at [facility]- diagnosis- acute appendicitis, Plan, I recommend to do laparoscopic appendectomy, possible open , D/W benefits, risks and alternatives of the surgery, the risks - infection, bleeding, injury bowel, [place], pt understood, she agrees with the surgery, I answered all questions, History of Present Illness History of Present Illness History of Present Illness General Chief complaint: Flank Pain Stated complaint: flank pain Time Seen by Provider: 10/15/19 16:16 History of Present Illness Maximum Pain Intensity: 4 The patient is a 68-year-old female who presented to the emergency department for an evaluation of right-sided flank pain. The patient has been experiencing right-sided abdominal pain and right flank pain over the last 3 to 4 days. She states the pain is moderate and worsened with any movement. She also notices localization in the right lower quadrant specifically with bending over. She is noticed no nausea or vomiting. She notices no fevers. She has not noticed any dysuria or frequency. She denies having any hematuria. She was seen by her primary care physician and sent for laboratory and radiographic studies. She was found to have signs of appendicitis on CT the abdomen and pelvis. For this reason she was sent to the emergency department for surgical evaluation. The patient states that she has had not had anything by mouth over the last few hours. She went home to pack a bag and then came here after she was called by her primary care physician. I ( Juancarlos Teran MD ) got a call for consult acute appendicitis, I reviewed pt's H/P , labs, CT result, with pt, pt is still have RLQ pain, Home Medications Home Medications Medication Instructions Recorded Confirmed Type Symbicort 2 puff INHALATION BID 11/08/18 09/04/19 History albuterol sulfate [ProAir HFA] 2 puff INHALATION QID PRN 11/08/18 09/04/19 History baclofen 10 mg PO TID PRN 11/08/18 09/04/19 History duloxetine 30 mg PO DAILY 11/08/18 09/04/19 History hydrocodone-acetaminophen [[place]] 1 tab PO TID PRN 11/08/18 09/04/19 History magnesium oxide 400 mg PO DAILY 11/08/18 09/04/19 History montelukast [Singulair] 10 mg PO PM 11/08/18 09/04/19 History multivitamin 1 tab PO QAM 11/08/18 09/04/19 History naproxen 500 mg PO BID PRN 11/08/18 09/04/19 History potassium chloride 10 meq PO DAILY 11/08/18 09/04/19 History simvastatin [Zocor] 10 mg PO HS 11/08/18 09/04/19 History simvastatin [Zocor] 10 mg PO PM 11/08/18 09/04/19 History topiramate [Topamax] 100 mg PO HS 11/08/18 09/04/19 History triamterene-hydrochlorothiazid 1 tab PO DAILY 11/08/18 09/04/19 History Allergies Allergy/AdvReac Type Severity Reaction Status Date / Time etodolac Allergy Severe HIVES Verified 11/22/18 07:36 Past Med/Surg History Medical History Anxiety Asthma USES PRN INH 1 X MO NEEDED Chiari malformation Chronic back pain Degenerative disc disease History of ectopic Hyperlipidemia Hypertension Migraine Osteoarthritis Scoliosis Surgical History History of carpal tunnel release of both wrists History of cataract surgery History of colonoscopy History of fusion of lumbar spine History of laparoscopy History of sinus surgery Family History Sister Family history of diabetes mellitus Social History Preferred Language: Irish Communication Ability: Effective 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 and A total of 10 systems reviewed and were otherwise negative Allergies Allergy/AdvReac Type Severity Reaction Status Date / Time etodolac Allergy Severe HIVES Verified 10/15/19 16:54 Home Medications Home Medications Medication Instructions Recorded Confirmed Type albuterol sulfate [ProAir HFA] 2 puff INHALATION QID PRN 05/09/19 04/14/20 History baclofen 10 mg PO TID PRN 11/08/18 10/15/19 History budesonide-formoterol [Symbicort] 2 puff INHALATION BID 11/08/18 10/15/19 History duloxetine 30 mg PO DAILY 11/08/18 10/15/19 History hydrocodone-acetaminophen [[place]] 1 tab PO TID PRN 11/08/18 10/15/19 History magnesium oxide 400 mg PO DAILY 11/08/18 10/15/19 History montelukast [Singulair] 10 mg PO PM 11/08/18 10/15/19 History multivitamin 1 tab PO QAM 11/08/18 10/15/19 History naproxen 500 mg PO BID PRN 11/08/18 10/15/19 History potassium chloride 10 meq PO DAILY 11/08/18 10/15/19 History simvastatin [Zocor] 10 mg PO HS 11/08/18 10/15/19 History topiramate [Topamax] 100 mg PO HS 11/08/18 10/15/19 History lisinopril 10 mg PO DAILY 10/15/19 10/15/19 History Patient History Medical History Anxiety Asthma USES PRN INH 1 X MO NEEDED Chiari malformation Chronic back pain Degenerative disc disease History of ectopic Hyperlipidemia Hypertension Migraine Osteoarthritis Scoliosis Surgical History History of carpal tunnel release of both wrists History of cataract surgery History of colonoscopy History of fusion of lumbar spine History of laparoscopy History of sinus surgery Family History Sister Family history of diabetes mellitus Social History Preferred Language: Irish Communication Ability: Effective Branch Billing Payroll Clerk Required: No Beliefs That Will Affect Care: None Current Living Situation: Spouse and Family Other Information That Helps Us Care for You: No Feels Safe at Home: Yes Safety Concerns: Feels Safe At This Time Smoking Status: Never smoker Do You Dip or Chew Tobacco: No ; Second Hand Exposure: No ; Tobacco Cessation Education Requested by Patient: No Hx Alcohol Use: No Hx Substance Use: No Review of Systems Review of Systems: All systems reviewed & are unremarkable except as noted in HPI & below Constitutional: as per Subjective / HPI Eyes: as per Subjective / HPI Ear, Nose, Mouth, Throat: as per Subjective / HPI Respiratory: as per Subjective / HPI asthma Cardiovascular: as per Subjective / HPI Additional Comments: hyperlipemia Gastrointestinal: as per Subjective / HPI Genitourinary: as per Subjective / HPI Musculoskeletal: as per Subjective / HPI back pain, fall, fracture of transverse process of thoracic vertebra Integumentary: as per Subjective / HPI Neurologic: as per Subjective / HPI Psychiatric: as per Subjective / HPI Endocrine: as per Subjective / HPI Hematologic / Lymphatic: as per Subjective / HPI Allergy / Immunological: as per Subjective / HPI Physical Exam Constitutional: WD/WN, vitals as above well developed and well nourished Eyes: PERRL, conjunctivae normal, anicteric sclerae ENMT: external ear and nose normal, oropharynx normal Neck: trachea midline, no thyromegaly Respiratory: normal respiratory effort, lungs clear to auscultation normal respiratory effort Cardiovascular: RRR, no murmur, no edema Rate/Rhythm: regular rate and regular rhythm Heart Sounds: normal S1 and normal S2 Gastrointestinal (Abdomen): normal bowel sounds, soft, nontender, no hepatosplenomegaly Percussion/Palpation: + abdomen tender and abdomen soft tenderness at RLQ, no rebound pain, no distend Musculoskeletal: no cyanosis or clubbing, extremities motor strength 5/5 Skin: no rashes, warm and dry Neurologic: patellar DTR's 2+ bilat, sensation intact Psychiatric: Orientation: alert and oriented x 3 Results & Data Vital Signs (Past 12 Hours) Vital Signs Temp Pulse Resp BP Pulse Ox 10/15/19 16:26 97 10/15/19 16:14 36.9 C 73 18 162/84 H 97 Laboratory Results Abnormal lab results 10/15/19 10/15/19 10/15/19 Range/Units 16:30 16:30 16:30 RBC 4.01 L (4.2-5.4) M/uL ESR 27 H (0-21) mm/hr Potassium 3.4 L (3.5-5.1) mmol/L Chloride 110 H (98-107) mmol/L Anion Gap 1.0 L (3-11) BUN 19 H (7-18) mg/dl BUN/Creatinine Ratio 20.3 H (10-20) AST 14 L (15-37) U/L C-Reactive Protein 1.54 H (0-0.29) mg/dl Ur Specific [place] (1.000-1.030) 10/15/19 Range/Units 16:38 RBC (4.2-5.4) M/uL ESR (0-21) mm/hr Potassium (3.5-5.1) mmol/L Chloride (98-107) mmol/L Anion Gap (3-11) BUN (7-18) mg/dl BUN/Creatinine Ratio (10-20) AST (15-37) U/L C-Reactive Protein (0-0.29) mg/dl Ur Specific [place] > 1.045 H (1.000-1.030)
--- NOTE | 2019-10-15 18:28 | History & Physical Bridge Note ---
Date of Service October 15, 2019 History & Physical Bridge Note I have examined the patient, reviewed the History & Physical and in the interval since the performance of the History & Physical I have noted the following changes of clinical significance: no changes noted
[2019-10-15] MEDS ORDERED: cefOXitin 2,000 MG/60 ML BAG IV SCH (18:45)
[2019-10-15] MEDS ORDERED: ATROPINE SULFATE 0.1 MG/ML 10ML SYR IV PRN (18:52)
[2019-10-15] MEDS ORDERED: ONDANSETRON INJ 2 MG/ML 2 ML VIAL IV PRN ×2 (18:52→20:27)
[2019-10-15] MEDS ORDERED: fentaNYL citrate 100 MCG/2 ML VIAL IV PRN (18:52)
[2019-10-15] MEDS ORDERED: ePHEDrine sulfate 50 MG/ML AMP IV PRN (18:52)
[2019-10-15] MEDS ORDERED: MoRPHine SULFATE PF 1 MG/ML 10 ML AMP/VIAL ONE (19:25)
--- NOTE | 2019-10-15 20:24 | Post Operative Brief Note ---
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
[2019-10-15] MEDS ORDERED: PROPOFOL IV EMULSION 10 MG/ML 20 ML VIAL IV ONE (20:41)
[2019-10-15] MEDS ORDERED: DEXAMETHASONE SOD INJ 4 MG/ML VIAL ONE (20:41)
[2019-10-15] MEDS ORDERED: LIDOCAINE HCL 2% 2 ML VIAL/AMP(20MG/ML) INFIL ONE (20:41)
[2019-10-15] MEDS ORDERED: ONDANSETRON INJ 2 MG/ML 2 ML VIAL ONE (20:41)
[2019-10-15] MEDS ORDERED: SUCCINYLCHOLINE CHLORIDE 20 MG/ML 10 ML VIAL ONE (20:41)
--- NOTE | 2019-10-15 21:08 | Anesthesiology Progress Note ---
Date of Service October 15, 2019 Anesthesia Post Procedure Vital Signs Vital Signs: Temp Pulse Pulse Resp BP BP Pulse Ox 10/15/19 21:00 78 18 146/87 H 100 10/15/19 20:50 36.0 C L 76 16 162/95 H 94 10/15/19 18:10 86 18 10/15/19 18:00 75 15 10/15/19 17:50 67 16 100 10/15/19 17:40 70 17 10/15/19 17:30 66 15 98 10/15/19 17:20 70 15 98 10/15/19 17:10 67 14 99 10/15/19 17:00 67 13 99 10/15/19 16:50 74 14 98 10/15/19 16:44 75 22 159/95 H 98 10/15/19 16:26 97 10/15/19 16:14 36.9 C 73 18 162/84 H 97 Pain Intensity Abdomen: Pain Intensity: 0 Transfer of Care Handoff Completed per policy Notes Mental Status: alert / awake / arousable Patient Amnestic to Procedure: Yes Nausea / Vomiting: adequately controlled Pain: adequately controlled Airway Patency, RR, SpO2: stable & adequate BP & HR: stable & adequate Hydration State: stable & adequate Anesthetic Complications: no major complications apparent
[2019-10-15] MEDS ORDERED: BACLOFEN 10 MG TAB PO PRN (21:26)
[2019-10-15] MEDS ORDERED: NAPROXEN 250 MG TAB PO PRN (21:26)
[2019-10-15] MEDS ORDERED: OXYCODONE/ACETAMINOPHEN 5mg/325mg TAB PO PRN (21:26)
[2019-10-15] MEDS ORDERED: HYDROmorphone INJ 0.5 MG/0.5 ML SYR IV PRN (21:26)
[2019-10-15] MEDS ORDERED: ALBUTEROL HFA 8 GM INHALER INH PRN (21:28)
[2019-10-15] MEDS: LACTATED RINGER'S 1,000 ML IV SCH (21:37)
[2019-10-15] MEDS ORDERED: MONTELUKAST SODIUM 10 MG TABLET PO SCH (22:00)
[2019-10-15] MEDS ORDERED: TOPIRAMATE 100 MG TAB PO SCH (22:00)
[2019-10-15] MEDS ORDERED: SIMVASTATIN 10 MG TAB PO SCH (22:00)
--- NOTE | 2019-10-16 | Operative Report (OR) ---
DATE OF OPERATION: 10/15/2019 PREOPERATIVE DIAGNOSIS: Acute appendicitis. POSTOPERATIVE DIAGNOSIS: Acute appendicitis. OPERATION: Laparoscopic appendectomy. SURGEON: Juancarlos Teran MD. ANESTHESIA: General. ESTIMATED BLOOD LOSS: About 10 mL. FINDINGS: Acute appendicitis. COMPLICATIONS: None. INDICATIONS FOR THE PROCEDURE: This is a 68-year-old female who presented to ED with 4 days history of right lower quadrant pain. The patient had a CT scan diagnosis of acute appendicitis and I recommended to do laparoscopic appendectomy, possible open. I did talk to the patient about the benefits, risks, alternate procedures. I indicated the risks may include but not limited such as bleeding, infection, injury to the bowel, abscess. The patient understands. She signed informed consent and I answered all questions. DETAILS OF PROCEDURE: We brought in the patient to the OR, put the patient in the supine position. The patient received SCD on bilateral legs to prevent DVT. Also patient received 2 g cefoxitin IV for prophylactic antibiotic. The patient received general anesthesia without difficulty. The abdomen was prepped and draped in routine sterile fashion. After time-out, I injected local anesthesia by using 1% lidocaine mixed with 0.5% Marcaine just above the umbilicus. Then I made a small incision just above umbilicus, opened fascia and opened peritoneum under direct vision, put a Lizet trocar in, connected to CO2 to create pneumoperitoneum. Flow rate is 6 liter per minute. Pressure not more than 14 mmHg. Once we got a nice pneumoperitoneum, we put the camera in, looked around the abdomen, it showed normal finding on the small bowel and large bowel. However, the appendix showed it is enlarged, confirmed diagnosis of acute appendicitis with some inflammation on the appendix. Then we put another two 5 mm trocar on the right lower quadrant area. Then we used the grasper to hold the appendix and used the harmonic to take down appendiceal; rechecked, no active bleeding. Then I used a 45 mm Endo-GIOVANY staple for transection on the base of the appendix, rechecked the staple, line, intact, no active bleeding, no leak. Then we removed the appendix through the catch bag. Then we reinserted Lizet trocar in, connected to CO2 to create pneumoperitoneum. Again looked around the abdomen, no active bleeding, no leak from staple line. Then we removed all trocar under direct vision. No active bleeding from the trocar site. Pneumoperitoneum was released. Then I used #1 Vicryl [id number] and closed the umbilical incision, fascial layer, closed subcutaneous layer by using 2-0 Vicryl interruptedly, closed skin by using 4-0 Vicryl continuous running, closed another two 5 mm trocar site skin only by using 4-0 Vicryl. Then we put the dressing on. The patient tolerated the procedure well. All instrument, needle and sponge counts were correct x2 at the end of the case. The patient transferred to recovery room in stable condition. The specimen sent to pathology. After procedure, I did call the patient's about the OR finding and procedure we did and he understands. I attest to the content of the Intraoperative Record and any orders documented therein. Any exception s are noted below.
[2019-10-16] MEDS: HYDROCODONE/ACETAMINOPHEN 7.5/325MG TAB PO PRN ×3 (01:14→17:23)
[2019-10-16 07:18] LABS: Hematocrit (blood only) 35.5 % (37-47); Hemoglobin 12.2 g/dL (12.0-16.0); Immature Granulocytes # (auto) 0.01 K/uL (0.00-0.02); Immature Granulocytes % (auto) 0.2 %; Lymphocytes # (auto) 1.39 K/uL (1.2-3.4); Lymphocytes % (auto) 21.4 %; Mean Corpuscular Hemoglobin 33.8 pg (25-34); Mean Corpuscular Volume 98.3 fL (80-100); Mean Platelet Volume 9.4 fL (7.4-10.4); Monocytes # (auto) 0.43 K/uL (0.11-0.59); Monocytes % (auto) 6.6 %; Neutrophils # (auto) 4.67 K/uL (1.4-6.5); Neutrophils % (auto) 71.8 %; Platelet Count 168 K/uL (130-400); RDW Coefficient of Variation 12.3 % (11.5-14.5); RDW Standard Deviation 44.2 fL (36.4-46.3); Red Blood Count 3.61 M/uL (4.2-5.4)
[2019-10-16 07:20] LABS: Mean Corpuscular Hgb Conc 34.4 g/dL (32-36)
[2019-10-16 07:23] LABS: Albumin Globulin Ratio 0.9 (0.9-2); BUN Creatinine Ratio 15.1 (10-20); Bilirubin,Total 0.4 mg/dl (0.2-1); Creatinine Clr Calc Pharmacy 62.9 ml/min; Est GFR (African American) 74.7; Est GFR (Non-African American) 64.4; Globulin 3.5 gm/dl (2.5-4.0); Total Protein 6.5 gm/dl (6.4-8.2)
--- NOTE | 2019-10-16 07:49 | Anesthesiology Progress Note ---
Date of Service October 16, 2019 Anesthesia Post Procedure Vital Signs Vital Signs: Temp Pulse Pulse Pulse Resp BP BP 10/16/19 07:41 36.4 C L 69 18 137/78 10/16/19 03:48 36.5 C 79 16 121/75 10/16/19 00:25 36.6 C 72 16 133/76 10/15/19 23:26 36.3 C L 80 16 113/75 10/15/19 22:27 36.4 C L 69 18 161/90 H 10/15/19 22:01 76 18 145/81 H 10/15/19 21:25 36.3 C L 77 18 166/93 H 10/15/19 21:15 75 14 142/84 H 10/15/19 21:10 37.0 C 75 16 146/98 H 10/15/19 21:00 78 18 146/87 H 10/15/19 20:50 36.0 C L 76 16 162/95 H 10/15/19 18:10 86 18 10/15/19 18:00 75 15 10/15/19 17:50 67 16 10/15/19 17:40 70 17 10/15/19 17:30 66 15 10/15/19 17:20 70 15 10/15/19 17:10 67 14 10/15/19 17:00 67 13 10/15/19 16:50 74 14 10/15/19 16:44 75 22 159/95 H 10/15/19 16:26 10/15/19 16:14 36.9 C 73 18 162/84 H Pulse Ox 10/16/19 07:41 97 10/16/19 03:48 93 10/16/19 00:25 92 10/15/19 23:26 94 10/15/19 22:27 92 10/15/19 22:01 95 10/15/19 21:25 94 10/15/19 21:15 100 10/15/19 21:10 100 10/15/19 21:00 100 10/15/19 20:50 94 10/15/19 18:10 10/15/19 18:00 10/15/19 17:50 100 10/15/19 17:40 10/15/19 17:30 98 10/15/19 17:20 98 10/15/19 17:10 99 10/15/19 17:00 99 10/15/19 16:50 98 10/15/19 16:44 98 10/15/19 16:26 97 10/15/19 16:14 97 Pain Intensity Abdomen: Pain Intensity: 0 Notes Mental Status: alert / awake / arousable and participated in evaluation Nausea / Vomiting: adequately controlled Pain: adequately controlled Airway Patency, RR, SpO2: stable & adequate BP & HR: stable & adequate Hydration State: stable & adequate
[2019-10-16 08:38] LABS: Potassium 3.7 mmol/L (3.5-5.1)
[2019-10-16] MEDS: LACTATED RINGER'S 1,000 ML IV SCH (08:54)
[2019-10-16] MEDS ORDERED: DULOXETINE HCL 30 MG CAP PO SCH (09:00)
[2019-10-16] MEDS ORDERED: MAGNESIUM OXIDE 400 MG TAB PO SCH (09:00)
[2019-10-16] MEDS ORDERED: POTASSIUM CHLORIDE 10 MEQ TABCR PO SCH (09:00)
[2019-10-16] MEDS ORDERED: MULTIVITAMIN TAB PO SCH (09:00)
[2019-10-16] MEDS ORDERED: FLUTICASONE/VILANTEROL 200/25MCG 14 PUFFS/INHALER INH SCH (09:00)
[2019-10-16] MEDS ORDERED: lisinopriL 10 MG TAB PO SCH (09:00)
[2019-10-16] MEDS ORDERED: COUGH DROP (SUGAR FREE) LOZ 24 LOZ/1 BOX BUCCAL PRN (09:49)
[2019-10-16] MEDS ORDERED: CHLORASEPTIC 1.4% SOLN 180 ML BTL MT PRN (10:15)
--- NOTE | 2019-10-16 11:34 | Surgery Progress Note ---
Date of Service October 16, 2019 Assessment & Plan (1) Acute appendicitis: POD # 1 s/p laparoscopic appendectomy -avss - moderate postop pain controlled - Hoarseness and sore throat s/p procedure - no n/v, passing flatus Plan: Advance diet as tolerated Continue PO Holland prn pain Encouraged incentive spirometry 10x/hour and ambulating hallway Will start oral Nystatin for Thrush qid oral lozenges and throat spray prn sore throat Continue IV Cefoxitin postop until discharge decrease IV fluids to 50 cc/hr possible discharge this afternoon/early evening Dr. Teran has seen patient separately and agrees with above. Subjective complaining of tight/sore throat, hoarseness since procedure no shortness of breath, difficulty breathing tolerating clear liquids no nausea or vomiting pain controlled with Holland urinating without difficulty has not ambulated hallway yet Physical Exam Constitutional: WD/WN, vitals as above no acute distress ENMT: oral thrush present Respiratory: normal respiratory effort, lungs clear to auscultation normal respiratory effort; no respiratory distress Gastrointestinal (Abdomen): Inspection/Auscultation: abdomen normal to inspection; abdomen not distended Percussion/Palpation: + abdomen tender (at incision sites and RLQ ond deep palpation) and abdomen soft; no guarding and abdomen not rigid Skin: no rashes, warm and dry + incision (covered with dry dressings) Psychiatric: Orientation: alert and oriented x 3 Results & Data Vital Signs (Past 12 Hours) Vital Signs Temp Pulse Resp BP Pulse Ox 10/16/19 11:09 37.0 C 75 18 138/81 96 10/16/19 08:50 130/80 10/16/19 07:41 36.4 C L 69 18 137/78 97 10/16/19 03:48 36.5 C 79 16 121/75 93 10/16/19 00:25 36.6 C 72 16 133/76 92 Laboratory Results 10/16/19 10/16/19 10/16/19 Range/Units 07:58 07:10 06:21 WBC 6.50 (4.8-10.8) K/uL RBC 3.61 L (4.2-5.4) M/uL Hgb 12.2 (12.0-16.0) g/dL Hct 35.5 L (37-47) % MCV 98.3 (80-100) fL MCH 33.8 (25-34) pg MCHC 34.4 (32-36) g/dL RDW Std Deviation 44.2 (36.4-46.3) fL RDW Coeff of Rose 12.3 (11.5-14.5) % Plt Count 168 (130-400) K/uL MPV 9.4 (7.4-10.4) fL Immature Gran % (Auto) 0.2 % Neut % (Auto) 71.8 % Lymph % (Auto) 21.4 % Brooke % (Auto) 6.6 % Eos % (Auto) 0.0 % Baso % (Auto) 0.0 % Immature Gran # (Auto) 0.01 (0.00-0.02) K/uL Neut # (Auto) 4.67 (1.4-6.5) K/uL Lymph # (Auto) 1.39 (1.2-3.4) K/uL Brooke # (Auto) 0.43 (0.11-0.59) K/uL Eos # (Auto) 0.00 (0-0.5) K/uL Baso # (Auto) 0.00 (0-0.2) K/uL Absolute Nucleated RBC Nucleated RBC % (auto) Neutrophils % (Manual) Band Neutrophils % Lymphocytes % (Manual) Prolymphocyte % Reactive Lymphs % (Man) Monocytes % (Manual) Eosinophils % (Manual) Basophils % (Manual) Metamyelocytes % (Man) Myelocytes % (Man) Promyelocytes % (Man) Blast Cells % (Manual) Plasma Cell % (Manual) Other Cells % Nucleated RBC % Neutrophils # (Manual) Band Neutrophils # Total Absolute Neuts Lymphocytes # (Manual) Prolymphocyte # Reactive Lymphs # Total Abs Lymphocytes Monocytes # (Manual) Eosinophils # (Manual) Basophils # (Manual) Metamyelocytes # (Man) Myelocytes # (Manual) Promyelocytes # (Man) Blast Cells # (Man) Plasma Cell # (Manual) Other Cells # Nucleated RBCs # (Man) Hypersegmented Neuts Hyposegmented Neuts Hypogranular Neuts Large Granular Lymphs # Lrg Granular Lymphs Hairy Cells Smudge Cells Toxic Granulation Toxic Vacuolation Dohle Bodies Emile Rods Platelet Estimate Hypogranular Platelets Clumped Platelets Giant Platelets Platelet Satelliting RBC Morphology Polychromasia Hypochromasia Poikilocytosis Basophilic Stippling Anisocytosis Microcytosis Macrocytosis Spherocytes Pappenheimer Bodies Sickle Cells Target Cells Tear Drop Cells Ovalocytes Stomatocytes Rendon-[place] Bodies Echinocytes Acanthocytes (Spur) Rouleaux RBC Agglutinates Schistocytes RBC Morph Comment ESR (0-21) mm/hr Sezary Cell Sodium 139 (136-145) mmol/L Potassium 3.7 (3.5-5.1) mmol/L Chloride 115 H (98-107) mmol/L Carbon Dioxide 25 (21-32) mmol/L Anion Gap -1.0 L (3-11) BUN 14 (7-18) mg/dl Creatinine 0.92 (0.6-1.2) mg/dl Est Cr Clr Drug Dosing 62.9 ml/min Est GFR ( Amer) 74.7 Est GFR (Non-Af Amer) 64.4 BUN/Creatinine Ratio 15.1 (10-20) Glucose 120 H (70-99) mg/dl Calcium 9.0 (8.5-10.1) mg/dl Total Bilirubin 0.4 (0.2-1) mg/dl AST 14 L (15-37) U/L ALT 27 (12-78) U/L Alkaline Phosphatase 39 L (45-117) U/L C-Reactive Protein (0-0.29) mg/dl Total Protein 6.5 (6.4-8.2) gm/dl Albumin 3.0 L (3.4-5.0) gm/dl Globulin 3.5 (2.5-4.0) gm/dl Albumin/Globulin Ratio 0.9 (0.9-2) Lipase (73-393) U/L Urine Color Urine Appearance (Clear) Urine pH (4.5-7.5) Ur Specific [place] (1.000-1.030) Urine Protein (Negative) Urine Glucose (UA) (Negative) Urine Ketones (Negative) Urine Blood (Negative) Urine Nitrite (Negative) Urine Bilirubin (Negative) Urine Urobilinogen (Negative) Ur Leukocyte Esterase (Negative) 10/16/19 10/15/19 10/15/19 Range/Units 06:21 16:38 16:30 WBC Cancelled (4.8-10.8) K/uL RBC Cancelled (4.2-5.4) M/uL Hgb Cancelled (12.0-16.0) g/dL Hct Cancelled (37-47) % MCV Cancelled (80-100) fL MCH Cancelled (25-34) pg MCHC Cancelled (32-36) g/dL RDW Std Deviation Cancelled (36.4-46.3) fL RDW Coeff of Rose Cancelled (11.5-14.5) % Plt Count Cancelled (130-400) K/uL MPV Cancelled (7.4-10.4) fL Immature Gran % (Auto) Cancelled % Neut % (Auto) Cancelled % Lymph % (Auto) Cancelled % Brooke % (Auto) Cancelled % Eos % (Auto) Cancelled % Baso % (Auto) Cancelled % Immature Gran # (Auto) Cancelled (0.00-0.02) K/uL Neut # (Auto) Cancelled (1.4-6.5) K/uL Lymph # (Auto) Cancelled (1.2-3.4) K/uL Brooke # (Auto) Cancelled (0.11-0.59) K/uL Eos # (Auto) Cancelled (0-0.5) K/uL Baso # (Auto) Cancelled (0-0.2) K/uL Absolute Nucleated RBC Cancelled Nucleated RBC % (auto) Cancelled Neutrophils % (Manual) Cancelled Band Neutrophils % Cancelled Lymphocytes % (Manual) Cancelled Prolymphocyte % Cancelled Reactive Lymphs % (Man) Cancelled Monocytes % (Manual) Cancelled Eosinophils % (Manual) Cancelled Basophils % (Manual) Cancelled Metamyelocytes % (Man) Cancelled Myelocytes % (Man) Cancelled Promyelocytes % (Man) Cancelled Blast Cells % (Manual) Cancelled Plasma Cell % (Manual) Cancelled Other Cells % Cancelled Nucleated RBC % Cancelled Neutrophils # (Manual) Cancelled Band Neutrophils # Cancelled Total Absolute Neuts Cancelled Lymphocytes # (Manual) Cancelled Prolymphocyte # Cancelled Reactive Lymphs # Cancelled Total Abs Lymphocytes Cancelled Monocytes # (Manual) Cancelled Eosinophils # (Manual) Cancelled Basophils # (Manual) Cancelled Metamyelocytes # (Man) Cancelled Myelocytes # (Manual) Cancelled Promyelocytes # (Man) Cancelled Blast Cells # (Man) Cancelled Plasma Cell # (Manual) Cancelled Other Cells # Cancelled Nucleated RBCs # (Man) Cancelled Hypersegmented Neuts Cancelled Hyposegmented Neuts Cancelled Hypogranular Neuts Cancelled Large Granular Lymphs Cancelled # Lrg Granular Lymphs Cancelled Hairy Cells Cancelled Smudge Cells Cancelled Toxic Granulation Cancelled Toxic Vacuolation Cancelled Dohle Bodies Cancelled Emile Rods Cancelled Platelet Estimate Cancelled Hypogranular Platelets Cancelled Clumped Platelets Cancelled Giant Platelets Cancelled Platelet Satelliting Cancelled RBC Morphology Cancelled Polychromasia Cancelled Hypochromasia Cancelled Poikilocytosis Cancelled Basophilic Stippling Cancelled Anisocytosis Cancelled Microcytosis Cancelled Macrocytosis Cancelled Spherocytes Cancelled Pappenheimer Bodies Cancelled Sickle Cells Cancelled Target Cells Cancelled Tear Drop Cells Cancelled Ovalocytes Cancelled Stomatocytes Cancelled Rendon-[place] Bodies Cancelled Echinocytes Cancelled Acanthocytes (Spur) Cancelled Rouleaux Cancelled RBC Agglutinates Cancelled Schistocytes Cancelled RBC Morph Comment Cancelled ESR (0-21) mm/hr Sezary Cell Cancelled Sodium 136 (136-145) mmol/L Potassium 3.4 L (3.5-5.1) mmol/L Chloride 110 H (98-107) mmol/L Carbon Dioxide 25 (21-32) mmol/L Anion Gap 1.0 L (3-11) BUN 19 H (7-18) mg/dl Creatinine 0.94 (0.6-1.2) mg/dl Est Cr Clr Drug Dosing 61.6 ml/min Est GFR ( Amer) 72.8 Est GFR (Non-Af Amer) 62.8 BUN/Creatinine Ratio 20.3 H (10-20) Glucose 90 (70-99) mg/dl Calcium 9.3 (8.5-10.1) mg/dl Total Bilirubin 0.3 (0.2-1) mg/dl AST 14 L (15-37) U/L ALT 30 (12-78) U/L Alkaline Phosphatase 49 (45-117) U/L C-Reactive Protein 1.54 H (0-0.29) mg/dl Total Protein 7.8 (6.4-8.2) gm/dl Albumin 3.9 (3.4-5.0) gm/dl Globulin 3.9 (2.5-4.0) gm/dl Albumin/Globulin Ratio 1.0 (0.9-2) Lipase 234 (73-393) U/L Urine Color Yellow Urine Appearance Clear (Clear) Urine pH 5.0 (4.5-7.5) Ur Specific [place] > 1.045 H (1.000-1.030) Urine Protein Negative (Negative) Urine Glucose (UA) Negative (Negative) Urine Ketones Negative (Negative) Urine Blood Negative (Negative) Urine Nitrite Negative (Negative) Urine Bilirubin Negative (Negative) Urine Urobilinogen Negative (Negative) Ur Leukocyte Esterase Negative (Negative) 10/15/19 10/15/19 Range/Units 16:30 16:30 WBC 5.37 (4.8-10.8) K/uL RBC 4.01 L (4.2-5.4) M/uL Hgb 13.5 (12.0-16.0) g/dL Hct 39.6 (37-47) % MCV 98.8 (80-100) fL MCH 33.7 (25-34) pg MCHC 34.1 (32-36) g/dL RDW Std Deviation 44.4 (36.4-46.3) fL RDW Coeff of Rose 12.4 (11.5-14.5) % Plt Count 186 (130-400) K/uL MPV 9.2 (7.4-10.4) fL Immature Gran % (Auto) 0.0 % Neut % (Auto) 56.4 % Lymph % (Auto) 37.1 % Brooke % (Auto) 6.5 % Eos % (Auto) 0.0 % Baso % (Auto) 0.0 % Immature Gran # (Auto) 0.00 (0.00-0.02) K/uL Neut # (Auto) 3.03 (1.4-6.5) K/uL Lymph # (Auto) 1.99 (1.2-3.4) K/uL Brooke # (Auto) 0.35 (0.11-0.59) K/uL Eos # (Auto) 0.00 (0-0.5) K/uL Baso # (Auto) 0.00 (0-0.2) K/uL Absolute Nucleated RBC Nucleated RBC % (auto) Neutrophils % (Manual) Band Neutrophils % Lymphocytes % (Manual) Prolymphocyte % Reactive Lymphs % (Man) Monocytes % (Manual) Eosinophils % (Manual) Basophils % (Manual) Metamyelocytes % (Man) Myelocytes % (Man) Promyelocytes % (Man) Blast Cells % (Manual) Plasma Cell % (Manual) Other Cells % Nucleated RBC % Neutrophils # (Manual) Band Neutrophils # Total Absolute Neuts Lymphocytes # (Manual) Prolymphocyte # Reactive Lymphs # Total Abs Lymphocytes Monocytes # (Manual) Eosinophils # (Manual) Basophils # (Manual) Metamyelocytes # (Man) Myelocytes # (Manual) Promyelocytes # (Man) Blast Cells # (Man) Plasma Cell # (Manual) Other Cells # Nucleated RBCs # (Man) Hypersegmented Neuts Hyposegmented Neuts Hypogranular Neuts Large Granular Lymphs # Lrg Granular Lymphs Hairy Cells Smudge Cells Toxic Granulation Toxic Vacuolation Dohle Bodies Emile Rods Platelet Estimate Hypogranular Platelets Clumped Platelets Giant Platelets Platelet Satelliting RBC Morphology Polychromasia Hypochromasia Poikilocytosis Basophilic Stippling Anisocytosis Microcytosis Macrocytosis Spherocytes Pappenheimer Bodies Sickle Cells Target Cells Tear Drop Cells Ovalocytes Stomatocytes Rendon-[place] Bodies Echinocytes Acanthocytes (Spur) Rouleaux RBC Agglutinates Schistocytes RBC Morph Comment ESR 27 H (0-21) mm/hr Sezary Cell Sodium (136-145) mmol/L Potassium (3.5-5.1) mmol/L Chloride (98-107) mmol/L Carbon Dioxide (21-32) mmol/L Anion Gap (3-11) BUN (7-18) mg/dl Creatinine (0.6-1.2) mg/dl Est Cr Clr Drug Dosing ml/min Est GFR ( Amer) Est GFR (Non-Af Amer) BUN/Creatinine Ratio (10-20) Glucose (70-99) mg/dl Calcium (8.5-10.1) mg/dl Total Bilirubin (0.2-1) mg/dl AST (15-37) U/L ALT (12-78) U/L Alkaline Phosphatase (45-117) U/L C-Reactive Protein (0-0.29) mg/dl Total Protein (6.4-8.2) gm/dl Albumin (3.4-5.0) gm/dl Globulin (2.5-4.0) gm/dl Albumin/Globulin Ratio (0.9-2) Lipase (73-393) U/L Urine Color Urine Appearance (Clear) Urine pH (4.5-7.5) Ur Specific [place] (1.000-1.030) Urine Protein (Negative) Urine Glucose (UA) (Negative) Urine Ketones (Negative) Urine Blood (Negative) Urine Nitrite (Negative) Urine Bilirubin (Negative) Urine Urobilinogen (Negative) Ur Leukocyte Esterase (Negative)
[2019-10-16] MEDS: NYSTATIN SUSP 500,000 U/5 ML UDC PO SCH ×2 (13:48→17:23)
--- NOTE | 2019-10-16 21:57 | Discharge Summary (DS) ---
ADMITTING DIAGNOSIS: Acute appendicitis. DISCHARGE DIAGNOSIS: Acute appendicitis. OPERATION: Laparoscopic appendectomy. SURGEON: Juancarlos Teran MD DETAILS OF DISCHARGE SUMMARY: This is a 68-year-old female who presented to ED with acute abdominal pain. The patient had a CT scan diagnosis of acute appendicitis. We took the patient to the OR. We did a laparoscopic appendectomy on 10/15/2019. The patient tolerated the procedure well. After the procedure, the patient is doing fine. She tolerated the diet and no significant abdominal pain, no nausea, no vomiting. PHYSICAL EXAMINATION: VITAL SIGNS: Temperature is 37.1, respiratory rate 16, heart rate 96, blood pressure 138/81, O2 saturation 96% on room air. GENERAL: The patient is alert, awake, oriented x3. HEENT: With normal limitation. NEUROLOGIC: Intact. NECK: No JVD. CHEST: Bilateral lung sounds clear. HEART: Normal S1, S2. No murmur. ABDOMEN: Soft, nondistended. All incisions intact. No drainage, no redness, no significant abdominal pain, mild incision pain. Bowel sounds positive. EXTREMITIES: No edema. LABORATORY: Shows a WBC 6.1, hemoglobin is 12.2. The patient wanted to go home today and I gave the patient postop care instruction. I will follow up the patient in 1-2 weeks. The patient understands.
== END 2019-10-16 18:14 | disposition home or self-care (01) ==
LOC: ED 16:12 → 3E 18:40 → OR 18:40